=== PATIENT | female | born 1940 | race Caucasian/White ===

== ENCOUNTER → 2019-03-05 10:45 | Outpatient (CLI) | payer MEDICARE, BC | END | disposition home or self-care (01) | LOC: D.NM 10:45 | PROVIDERS: ATTEND Family Medicine | DX: T85.09XD Other mechanical complication of ventricular intracranial (communicating) shunt, subsequent encounter (principal) ==

== ENCOUNTER 2019-05-01 12:29 | Observation (INO) | payer MEDICARE, BC ==
[~2019-05-01] VITALS: Ht 165.1 cm; Wt 75.0 kg
[2019-05-06] MEDS ORDERED: BAYER CHEWABLE81 MG PO (15:09)
[2019-05-06] MEDS ORDERED: COREG 3.1253.125 MG PO (15:10)
[2019-05-06] MEDS ORDERED: LIPITOR80 MG PO (15:10)
[2019-05-06] MEDS ORDERED: PLAVIX75 MG PO (15:10)
[2019-05-06] MEDS ORDERED: TIROSINT100 MCG PO (15:10)
[2019-05-06] MEDS ORDERED: VITAMIN D250000 UNIT PO (15:12)
[2019-05-06] MEDS ORDERED: ZETIA10 MG PO (15:12)
[2019-05-06] MEDS ORDERED: CARDURA1 MG PO (15:15)
[2019-05-06 16:08] LABS: BASOPHILS 0.2 % (0-2); EOSINOPHILS 3.2 % (0-7); HEMATOCRIT 38.3 % (36.0-48.0); HEMOGLOBIN 12.4 g/dL (12-16); IMMATURE GRANULOCYTES 0.2 % (0-5); MCH 29.7 pg (26.0-34.0); MCHC 32.4 g/dL (31.0-37.0); MCV 91.6 fL (80.0-100.0); MEAN PLATELET VOLUME 9.6 fL (7.4-10.4); MONOCYTES 7.4 % (2-11); PLATELET COUNT 189 10x3/uL (130-400); RBC 4.18 10x6/uL (4.00-5.40)
[2019-05-06 16:16] LABS: ANION GAP 12.2 mmol/L (8-16); CALCIUM 8.6 mg/dL (8.5-10.1); CARBON DIOXIDE 25.9 mmol/L (21.0-32.0); CREATININE - SERUM 1.1 mg/dL (0.6-1.3); POTASSIUM - SERUM 4.1 mmol/L (3.5-5.1)
[2019-05-07] VITALS (11 sets, daily range): BP systolic 135–167; BP diastolic 66–82; Ht 165.1 cm; Wt 75.0 kg
--- NOTE | 2019-05-07 07:47 | NUR ---
[address] SWAN ABOUT AREA OF PT'S HEAD TO SHAVE FOR SURGERY. DR SWAN STATES HE WILL SHAVE THE SURGERY SITE BACK IN THE OR.
--- NOTE | 2019-05-07 15:00 | NUR ---
PATIENT RECIEVED DC INSTRUCTIONS AND VERBALIZED UNDERSTANDING. ASSISTED DRESSING AND PACKING UP BELONGINGS. LEFT IV IN AC AT THIS TIME. NO COMPLAINTS OR QUESTIONS. ASSISTED TO WC AND TAKEN TO REHAB BY ROD GREASER WITH PERSONAL BELONGINGS.
--- NOTE | 2019-05-07 18:45 | NUR ---
PATIENT IN BED WITH EYES OPEN AT THIS TIME. NO COMPLAINTS OR SIGNS OF DISTRESS. IV INTACT. VS STABLE. FAMILY AT BEDSIDE.D RESSING TO HEAD CDI. [facility].
[2019-05-08 00:37] VITALS: BP 154/80
[2019-05-08 04:48] VITALS: BP 150/64
--- NOTE | 2019-05-08 07:20 | NUR ---
IV out resited to left FA with one atempt . flushes well.
--- NOTE | 2019-05-08 07:56 | NUR ---
AWAKE AND ALERT. ORIENTED X3. SLIGHTLY CONFUSED AT TIMES. LUNGS ARE CLEAR BILATERALLY, NO COUGH NOTED. SKIN IS INTACT WTIHOUT REDNESS EXCEPT INCISION TO RIGHT SIDE OF HEAD BEHIND THE EAR WHICH HAS A DRY INTACT DRESSING IN PLACE. IV TO LEFT FOREARM IS PATENT WITHOUT REDNESS AT INSERTION SITE. DENIES NEEDS.
[2019-05-08 08:06] VITALS: BP 141/60
[2019-05-08] MEDS ORDERED: CIPRO500 MG PO (10:03)
--- NOTE | 2019-05-08 11:45 | NUR ---
DISCHARGED TO HOME WITH DAUGHTER AMBULATORY. DISCHARGE INSTRUCTIONS GIVEN BOTH VERBALLY AND WRITTEN. ALL QUESTIONS ANSWERED. PATIENT AND DAUGHTER VERBALIZED UNDERSTANDING OF SAME. SL TO LEFT FOREARM D/C WITH CATHETER INTACT. NEEDED PRESCRIPTIONS GIVEN TO PATIENT. ALL BELONGINGS WITH PATIENT.
--- NOTE | 2019-06-05 09:47 | OP ---
PATIENT NAME: YUE WATERS MEDICAL RECORD: [id number] :38 LOCATION:[id number] ADMISSION DATE:05/07/19 SURGEON: ROBERT JEAN-BAPTISTE MD DATE OF OPERATION: 05/07/2019 PREOPERATIVE DIAGNOSIS: Ventriculoperitoneal shunt malfunction. POSTOPERATIVE DIAGNOSIS: Ventriculoperitoneal shunt valve dysfunction. PROCEDURE: Ventriculoperitoneal shunt revision with replacement of a shunt valve with a PS medical level 1 shunt. SURGEON: Robert Jean-Baptiste MD DESCRIPTION AND TECHNIQUE: After induction of general endotracheal anesthesia, the patient's shunt tract was prepped and draped in the usual sterile fashion. After infiltrates 1:100,000 epinephrine with 1% lidocaine into the previous incision and then previous incision was incised over the shunt valve. Shunt valve was disconnected distally and proximally from its shunt tubing. There was excellent CSF egress from the ventricular catheter. There was excellent distal runoff in the peritoneal catheter with a runoff pressure of less than one-half cm water. The shunt valve was difficult to find and it was slow to refill. Therefore, the decision was made to replace the shunt valve, was replaced with a small level 1 PS medical valve was connected proximally and distally to the ventriculoperitoneal shunt tubing. The ends were tied on to the new shunt valve with 3-0 silk ties. Following this, the shunt valve was cannulated with a #25-gauge butterfly. There was good distal runoff of CSF through the distal peritoneal catheter and good egress of CSF from the ventricular portion. Meticulous hemostasis was maintained throughout the wound. Wound was irrigated with copious amounts of vancomycin irrigant solution. The galea was reapproximated with interrupted 3-0 Vicryl suture. The skin was closed with yolis. Sterile dressing was applied. The patient was awakened in good condition, taken to recovery. All counts were reported as correct. TRANSINT:[id number] Voice Confirmation ID: [id number] DOCUMENT ID: [id number] ROBERT JEAN-BAPTISTE MD at 0947 CC: [id number] DICTATION DATE: 05/20/19 1624 ACCOUNT MANAGER [employer] SERVICE: 05/20/192045 DIS IN 05/08/19 [id number] [place] [address]
== END 2019-05-08 12:13 | disposition home or self-care (01) ==
LOC: D.SDCHOLD 05-07 07:30 → D.MS 05-07 07:30 → D.SDCHOLD 05-07 09:30 → D.MS 05-07 11:41 → OBSVTIME 05-08 07:30 → D.MS 05-08 12:13
PROVIDERS: Anesthesiology; ADMIT Neurological Surgery; ATTEND Neurological Surgery
DX: T85.09XA Other mechanical complication of ventricular intracranial (communicating) shunt, initial encounter (principal); Y83.8 Other surgical procedures as the cause of abnormal reaction of the patient, or of later complication, without mention of misadventure at the time of the procedure